=== PATIENT | female | born 1945 | race Caucasian/White ===

== ENCOUNTER 2017-09-09 02:40 | Emergency (ER) | payer MEDICARE, OTHER ==
[~2017-09-09] VITALS: Ht 307.3 cm; Wt 102.1 kg
[~2017-09-09 02:40] MED LIST: ADVAIR; LORTAB 7.5-5001 EACH PO; LOVENOX40 MG/0.4 SC; TENORMIN 25MG T25 MG PO; Z.0.ALTACE10 MG PO; Z.0.CATAPRES0.2 MG PO; Z.0.JANUVIA100 MG PO; Z.0.TRICOR145 MG PO; Z.0.VYTORIN 10-201 E PO
--- OUTSIDE RECORDS SUMMARY | 2017-09-09 02:44 | XMS REPORT | Clinical Summary ---
Author Author [facility] Organization [facility] Address Unknown Phone Unavailable Care Team Providers Care General Neurologist Name Role Phone Alen Huff MD PCP Allergies Not on File Current Medications Prescription Sig. Disp. Refills Start End Date Status Date ezetimibe-simvastatin Take 1 tablet by mouth. Active (VYTORIN) 10-20 mg per tablet nebivolol (BYSTOLIC) 10 Take 10 mg by mouth. Active MG tablet sitaGLIPtin (JANUVIA) 100 Take 100 mg by mouth. Active MG tablet ramipril (ALTACE) 10 MG Take 10 mg by mouth. Active capsule CONTOUR TEST STRIPS strip U TO TEST ONCE D 2 12/12/19 Active test strips 16 cholestyramine (QUESTRAN) MIX THE CONTENTS OF 1 0 12/09/19 Active 4 gram packet PACKET AND DRINK BID UTD 16 bisoprolol (ZEBETA) 5 MG 12/14/19 Active tablet 16 diphenoxylate-atropine TK 1 T PO Q 4 H PRF DH 0 12/17/19 Active (LOMOTIL) 2.5-0.025 mg 16 per tablet ZETIA 10 mg tablet 01/30/20 Active 16 ramipril (ALTACE) 5 MG 11/30/19 Active capsule 16 budesonide EC (ENTOCORT Take 3 capsules (9 mg 90 capsule 3 02/16/20 Active EC) 3 mg 24 hr capsule total) by mouth every 16 morning. Active Problems Problem Noted Date Irritable bowel syndrome Hiatal hernia Hematochezia GERD (gastroesophageal reflux disease) Esophagitis Dyspepsia Diverticulitis of colon Colon polyp Chronic diarrhea Microscopic colitis Family History Relation Name Status Comments Father Mother Social History Tobacco Use Types Packs/Day Years Used Date Never Smoker Alcohol Use Drinks/Week oz/Week Comments Yes Sex Assigned at Date Recorded Not on file Last Filed Vital Signs Not on file Plan of Treatment Health Maintenance Due Date Last Done Comments COLONOSCOPY 10/29/1993 MAMMOGRAM 10/29/1993 ZOSTER VACCINE 2003 PNEUMOCOCCAL 10/29/2008 POLYSACCHARIDE VACCINE AGE 65 AND OVER PNEUMOCOCCAL-13 10/29/2008 INFLUENZA VACCINE 01/01/2018 Results Not on fileafter 09/08/2016 Insurance Payer Benefit Subscriber ID Type Phone Address Plan / Group AETNA AETNA xxxxxxxxxx HMO HMO,POS,EP O, MC/EC MEDICARE MEDICARE xxxxxxxxxx Medicare [place], [place] [address]
[2017-09-09 02:59] VITALS: BP 184/83
[2017-09-09] MEDS ORDERED: TOBRAMYCIN 0.3% OPTH OINT 3.5 GM TUBE OP ONE (03:00)
== END 2017-09-09 03:05 | disposition home or self-care (01) ==
LOC: ER 02:40
DX: H57.12 Ocular pain, left eye (principal); T15.12XA Foreign body in conjunctival sac, left eye, initial encounter; H10.232 Serous conjunctivitis, except viral, left eye
CPT/HCPCS: 99283

== ENCOUNTER 2017-10-06 21:27 | Emergency (ER) | payer MEDICARE, OTHER ==
[~2017-10-06] VITALS: Ht 307.3 cm; Wt 102.1 kg
--- OUTSIDE RECORDS SUMMARY | 2017-10-06 21:30 | XMS REPORT | Continuity of Care Document ---
Author Author [facility] Organization [facility] Address [address] [place] [address] Phone Unavailable Care Team Providers Care Rug Layer Name Role Phone LEFTY ANTHONY MD PCP Insurance Providers Guarantor Delonte Florian Address [address] [place] [address] Payer Medicare A & B Policy Number [id number] Subscriber's Name Pio Florianlie Alka Relationship 18 Self / Same As Patient Group Name RETIRED Effective Date 08 [facility] Number [id number] Subscriber's Name Delonte Florian Alka Relationship 18 Self / Same As Patient Group Number [id number] Group Name [employer] Effective Date 02 Advance Directives Directive Response Recorded Date/Time Does the patient have an advance directive? No 04/21/12 5:21pm If yes, is advance directive on file with [facility]? Yes 04/21/12 5:21pm If not on file with [facility] will patient provide a copy? Yes 04/21/12 5:21pm Problems No problem information available. Medications Current Home Medications Medication Dose Units Route Directions Days Qty Instructions Start Date Atenolol (Tenormin 25MG Tab) 25 Mg Tab 25 Mg Oral Daily Clonidine Hcl (Catapres) 0.2 Mg Tablet 0.2 Mg Oral Daily Enoxaparin Sodium (Lovenox) 40 Mg/0.4 Ml Inj 40 Mg Subcutaneously Daily 14 Days Ezetimibe/Simvastatin (Vytorin 10-20 Mg Tablet) 1 Each Tablet 10 - 20 Mg Oral Daily Fenofibrate Nanocrystallized (Tricor) 145 Mg Tablet 145 Mg Oral Daily Hydrocodone Bit/Acetaminophen (Lortab 7.5-500 Tablet) 1 Each Tablet 1 - 2 Tab Oral Every 4-6 Hours as needed Ramipril (Altace) 10 Mg Capsule 10 Mg Oral Daily Sitagliptin Phosphate (Januvia) 100 Mg Tablet 100 Mg Oral Daily Past Home Medications Medication Directions Ordered Status Advair , As Needed Discontinued Social History Social History Problem Response Recorded Date/Time Onset Date Status Hx Psychiatric Problems No 04/21/2012 5:21pm Not Applicable Not Applicable Smoking Status Start Date Stop Date Never Smoker Hospital Discharge Instructions No hospital discharge instruction information available. Plan of Care Discharge Date 09/09/17 3:05am Disposition HOME, SELF-CARE Condition at Discharge Stable Instructions/Education Provided Infectious Conjunctivitis - Adult Foreign Body - Eye Forms Provided Work/School Excuse Prescriptions See Medication Section Additional Instructions/Education FOLLOW UP WITH PHYSICIAN WITHIN NEXT 2 DAYS Functional Status No functional status information available. Allergies, Adverse Reactions, Alerts Allergen Type Severity Reaction Status Last Updated Lorazepam Adverse Reaction Intermediate SEVERE CONFUSION Active 04/29/12 Immunizations No immunization information available. Vital Signs Acute Vital Signs Vital Response Date/Time Temperature (Fahrenheit) 98.1 degrees F (97.6 - 99.5) 09/09/2017 2:59am Pulse Pulse Rate (adult) 75 bpm (60 - 90) 09/09/2017 2:59am Respiratory Rate 18 bpm (12 - 24) 09/09/2017 2:59am Blood Pressure 184/83 mm Hg 09/09/2017 2:59am Height 10 ft 1 in 09/09/2017 2:43am Weight 225 lb 09/09/2017 2:43am Body Mass Index 10.8 kg/m^2 09/09/2017 2:43am Results No relevant diagnostic test, laboratory data and/or discharge summary information available. Procedures No procedure information available. Encounters Encounter Location Arrival/Admit Date Discharge/Depart Date Attending Provider Departed Emergency Room [facility] 09/09/17 2:40am 3:05am NEWTON BATISTA MD
--- OUTSIDE RECORDS SUMMARY | 2017-10-06 21:30 | XMS REPORT | Clinical Summary ---
Author Author [facility] Organization [facility] Address Unknown Phone Unavailable Care Team Providers Care Maintenance Associate Name Role Phone Alen Huff MD PCP [...] Last Done Comments COLONOSCOPY 10/29/1993 MAMMOGRAM 10/29/1993 SHINGRIX VACCINE (#1) 10/29/1993 ZOSTER VACCINE 2003 PNEUMOCOCCAL 10/29/2008 POLYSACCHARIDE VACCINE AGE 65 AND OVER PNEUMOCOCCAL-13 10/29/2008 INFLUENZA VACCINE 01/01/2018 Results Not on fileafter 10/05/2016 Insurance Payer Benefit Subscriber ID Type Phone Address Plan / Group AETNA AETNA xxxxxxxxxx HMO HMO,POS,EP O, MC/EC MEDICARE MEDICARE xxxxxxxxxx Medicare [place], [place] [address]
--- NOTE | 2017-10-06 22:34 | Diagnostic Imaging Report ---
EXAM: CHEST 2 VIEWS, PA and lateral INDICATION: Dry, nonproductive cough COMPARISON: None FINDINGS: LINES/TUBES: None LUNGS: Mild central bronchial thickening without consolidation. PLEURA: No effusions or pneumothorax. HEART AND MEDIASTINUM: Normal size and contour. BONES AND SOFT TISSUES: No acute findings. Surgical clips upper abdomen seen on lateral view IMPRESSION: Mild central bronchial thickening without consolidation. Findings could represent bronchitis. Signed by: Dr. Concepción Chavez M.D. on 10/06/2017 10:30 PM
[2017-10-06 22:41] VITALS: BP 139/86
== END 2017-10-06 22:54 | disposition home or self-care (01) ==
LOC: ER 21:27
DX: R05 Cough (principal); J20.9 Acute bronchitis, unspecified; I10 Essential (primary) hypertension; E78.5 Hyperlipidemia, unspecified
CPT/HCPCS: 71046; 99283

== ENCOUNTER 2019-03-15 09:04 | Observation (INO) | payer MEDICARE ==
[~2019-03-15] VITALS: Ht 172.7 cm; Wt 83.9 kg
[2019-03-15] VITALS (7 sets, daily range): BP systolic 145–202; BP diastolic 63–98
--- OUTSIDE RECORDS SUMMARY | 2019-03-15 09:09 | XMS REPORT ---
Author Author [facility] Address Unknown Phone Unavailable Care Team Providers Care Home Health Clinician Name Role Phone Garry BATISTA Unavailable Unavailable Problems This patient has no known problems. Allergies, Adverse Reactions, Alerts This patient has no known allergies or adverse reactions. Medications This patient has no known medications. Results Test Description Test Time Test Comments Text Results Atomic Results Result Comments CHEST 2 VIEWS [place] [address] Patient Name: CHRIS FLORIAN MR #: [id number] : 1945 Age/Sex: 71/F Req #: [id number] Adm Physician: Ordered by: NEWTON BATISTA MD Report #: [id number] Location: ER Room/Bed: Procedure: [id number] DX/CHEST 2 VIEWS Exam Date: 10/06/17 Exam Time: 2207 REPORT STATUS: Signed EXAM: CHEST 2 VIEWS, PA and lateral INDICATION: Dry, nonproductive cough COMPARISON: None FINDINGS: LINES/TUBES: None LUNGS: Mild central bronchial thickening without consolidation. PLEURA: No effusions or pneumothorax. HEART AND MEDIASTINUM: Normal size and contour. BONES AND SOFT TISSUES: No acute findings. Surgical clips upper abdomen seen on lateral view IMPRESSION: Mild central bronchial thickening without consolidation. Findings could represent bronchitis. Signed by: Dr. Mgaali Perez M.D. on 10/06/2017 10:30 PM Dictated By: MAGALI PEREZ MD 29 Transcribed By: YVONNE on 10/06/172229 COPY TO: NEWTON BATISTA MD
--- NOTE | 2019-03-15 09:14 | NUR ---
NITRO PASTE TO LEFT CHEST WALL. BP 202/90 HR 78
[2019-03-15] MEDS ORDERED: NITROGLYCERIN 2% OINT 1 GM PKT ONE (09:16)
[2019-03-15 09:24] LABS: BASOPHILS # (AUTO) 0.1 (0.0-0.1); BASOPHILS % 0.4 % (0.0-1.0); EOSINOPHILS # (AUTO) 0.4 (0.0-0.4); EOSINOPHILS % 2.8 % (0.0-6.0); HEMATOCRIT 53.3 % (34.2-44.1); HEMOGLOBIN 17.1 g/dL (12.0-16.0); LYMPHOCYTES # (AUTO) 4.9 (1.0-3.2); LYMPHOCYTES % 35.6 % (18.0-39.1); MEAN CORPUSCULAR HEMOGLOBIN 28.2 pg (28-32); MEAN CORPUSCULAR HGB CONC 32.1 g/dL (31-35); MEAN CORPUSCULAR VOLUME 87.8 fL (81-99); MONOCYTES % 7.3 % (4.4-11.3); NEUTROPHILS # (AUTO) 7.3 (2.1-6.9); PLATELET COUNT 303 x10e3/uL (140-360); RED BLOOD COUNT 6.07 x10e6/uL (3.6-5.1); RED CELL DISTRIBUTION WIDTH 13.1 % (11.7-14.4)
--- NOTE | 2019-03-15 09:42 | NUR ---
family to bring med list for reconciliation
[2019-03-15 09:45] LABS: ALBUMIN 4.3 g/dL (3.5-5.0); ALBUMIN/GLOBULIN RATIO 1.2 (0.8-2.0); ANION GAP 20.8 mmol/L (8-16); CALCIUM 10.5 mg/dL (8.4-10.2); CREATININE, SERUM 0.97 mg/dL (0.57-1.11); POTASSIUM 4.8 mmol/L (3.5-5.1)
[2019-03-15 09:52] LABS: CREATINE KINASE MB 2.6 ng/mL (0-5.0)
[2019-03-15 09:55] LABS: INR 0.9; PARTIAL THROMBOPLASTIN TIME 26.4 seconds (23.8-35.5); PROTHROMBIN TIME 12.6 seconds (11.9-14.5)
[2019-03-15] MEDS ORDERED: NITROGLYCERIN 2% OINT 1 GM PKT TOP ONE (10:00)
--- NOTE | 2019-03-15 10:06 | Diagnostic Imaging Report ---
EXAMINATION: CHEST SINGLE (PORTABLE) INDICATION: Chest pain. COMPARISON: Chest radiograph 10/06/2017. FINDINGS: TUBES and LINES: None. LUNGS: Lungs are moderately inflated. Mild patchy bibasilar opacities, likely atelectasis. There is no evidence of pneumonia or pulmonary edema. PLEURA: No pleural effusion or pneumothorax. HEART AND MEDIASTINUM: The cardiomediastinal silhouette is unremarkable. There are atherosclerotic calcifications within the aorta. BONES AND SOFT TISSUES: No acute osseous abnormality. UPPER ABDOMEN: No free air under the diaphragm. IMPRESSION: No acute radiographic abnormality. Signed by: Dr. Jonh Riley MD on 03/15/2019 10:03 AM
[2019-03-15] MEDS ORDERED: LIVALO1 MG PO (10:21)
[2019-03-15] MEDS ORDERED: COLESTIPOL HCL1 G1 PO (10:21)
[2019-03-15] MEDS ORDERED: VASCEPA PO (10:21)
[2019-03-15] MEDS ORDERED: ZEBETA10 MG PO (10:21)
[2019-03-15] MEDS ORDERED: LOSARTAN POTASS50 MG PO (10:21)
[2019-03-15] MEDS ORDERED: [UNRECOGNIZED DRUG - OTHER] PO (10:21)
[2019-03-15] MEDS: SODIUM CHLORIDE 0.9% 1000ML 1,000 ML IV SCH ×3 (10:38→20:31)
[2019-03-15 19:16] LABS: CREATINE KINASE MB 4.1 ng/mL (0-5.0)
--- NOTE | 2019-03-15 20:05 | NUR ---
CALLED DR. KIRKLAND AND LEFT A VOICEMAIL REGARDING INCREASED TROPONIN LEVEL. AWAITING CALL BACK
--- NOTE | 2019-03-15 20:08 | NUR ---
SPOKE TO DR. KIRKLAND AT THIS TIME REGARDING TROPONIN RESULT, BP READING 173/72, HR 80. NEW ORDERS RECEIVED FOR SCHEDULED METOPROLOL IV AND PRN MORPHINE IV.
[2019-03-15] MEDS ORDERED: MORPHINE SULFATE INJ 4 MG/ML INJ 1ML IV PRN (20:15)
[2019-03-15] MEDS: METOPROLOL TARTRATE INJ 1 MG/ML VIAL IV SCH (20:31)
[2019-03-15] MEDS ORDERED: METOPROLOL TARTRATE INJ 1 MG/ML VIAL ONE (20:34)
[2019-03-16] VITALS (10 sets, daily range): BP systolic 141–174; BP diastolic 63–91
[2019-03-16] MEDS ORDERED: METOPROLOL TARTRATE INJ 1 MG/ML VIAL ONE (02:27)
[2019-03-16] MEDS: METOPROLOL TARTRATE INJ 1 MG/ML VIAL IV SCH ×4 (02:34→20:43)
[2019-03-16 03:40] LABS: CREATINE KINASE MB 3.9 ng/mL (0-5.0)
--- NOTE | 2019-03-16 03:43 | NUR ---
CARDIAC MARKER DRAWN AND BROUGHT TO LAB AT 0242. RESULTS ARE STILL PENDING AT THIS TIME.
[2019-03-16 04:13] LABS: ALANINE AMINOTRANSFERASE 34 IU/L (0-55); ALBUMIN 3.3 g/dL (3.5-5.0); ALBUMIN/GLOBULIN RATIO 1.2 (0.8-2.0); ALKALINE PHOSPHATASE 36 IU/L (40-150); BLOOD UREA NITROGEN 21 mg/dL (7-26); BUN/CREATININE RATIO 27 (6-25); CALCIUM 8.8 mg/dL (8.4-10.2); CARBON DIOXIDE 24 mmol/L (22-29); CHLORIDE 104 mmol/L (98-107); CREATININE, SERUM 0.77 mg/dL (0.57-1.11); EST GLOMERULAR FILTRATION RATE > 60 ML/MIN (60-); GLUCOSE 108 mg/dL (74-118); SODIUM 139 mmol/L (136-145)
[2019-03-16 05:58] LABS: BASOPHILS # (AUTO) 0.1 (0.0-0.1); BASOPHILS % 0.6 % (0.0-1.0); EOSINOPHILS # (AUTO) 0.3 (0.0-0.4); EOSINOPHILS % 3.1 % (0.0-6.0); HEMATOCRIT 46.6 % (34.2-44.1); HEMOGLOBIN 14.9 g/dL (12.0-16.0); LYMPHOCYTES % 38.8 % (18.0-39.1); MEAN CORPUSCULAR HEMOGLOBIN 28.2 pg (28-32); MEAN CORPUSCULAR VOLUME 88.3 fL (81-99); MONOCYTES # (AUTO) 0.7 (0.2-0.8); MONOCYTES % 7.3 % (4.4-11.3); NEUTROPHILS % 49.3 % (38.7-80.0); PLATELET COUNT 230 x10e3/uL (140-360); RED BLOOD COUNT 5.28 x10e6/uL (3.6-5.1); RED CELL DISTRIBUTION WIDTH 13.2 % (11.7-14.4)
--- NOTE | 2019-03-16 06:07 | NUR ---
CBC STILL PENDING AT THIS TIME
[2019-03-16] MEDS ORDERED: VERAPAMIL HCL 2.5 MG/ML 2 ML VIAL ONE (07:12)
[2019-03-16] MEDS ORDERED: HEPARIN SOD (PORCINE) 1000 UNIT/ML 30ML ONE (07:12)
[2019-03-16] MEDS ORDERED: MIDAZOLAM HCL 2 MG/2 ML VIAL ONE (07:12)
[2019-03-16] MEDS ORDERED: FENTANYL CITRATE/PF 100MCG/2 ML INJ ONE (07:13)
[2019-03-16] MEDS ORDERED: LIDOCAINE HCL 2% LOCAL 20 ML VIAL ONE (07:13)
[2019-03-16] MEDS ORDERED: IOPAMIDOL 370 MG/ML 200 ML INFUS..BTL INJ ONE (07:14)
[2019-03-16] MEDS ORDERED: NITROGLYCERIN/D5W 200 MCG/ML 250 ML ONE (07:14)
[2019-03-16] MEDS ORDERED: SODIUM CHLORIDE 0.9% 1000ML 1,000 ML ONE (07:14)
[2019-03-16] MEDS ORDERED: HEPARIN SOD/SOD CHLORIDE 2,000 ML ONE (07:14)
[2019-03-16 12:00] LABS: CREATINE KINASE MB 2.9 ng/mL (0-5.0)
[2019-03-16] MEDS: SODIUM CHLORIDE 0.9% 1000ML 1,000 ML IV SCH (13:56)
--- NOTE | 2019-03-16 15:34 | NUR ---
pt off unit foe cath
--- NOTE | 2019-03-16 16:24 | NUR ---
received report from rodo in r and d lab technician no fix per rn awaiting for pt to arrive back to floor
--- NOTE | 2019-03-16 16:39 | NUR ---
RECEIVED PT FROM PSYCHOLOGICAL ANTHROPOLOGIST [id number]. IS AT BEDSIDE PT IS RESTING COMFORTABLY RIGHT GROIN DRESSING IS DRY AND INTACT PEDAL PULSES PRESENT BILATERALLY PT BACK ON TELEMETRY PT AWARE OF BED REST HOURS UNTIL 6 PM WILL CONTINUE TO MONITOR PT CLOSELY SIDE [id number], BED WHEELS LOCKED, CALL LIGHT IS WITHIN EASY REACH INSTRUCTED TO CALL FOR ASSISTANCE IF NEEDED
--- NOTE | 2019-03-16 19:32 | NUR ---
WALKING ROUNDS COMPLETED. PT IN RESTROOM AT THIS TIME. PT IS PRESENT AT BEDSIDE. WILL CONTINUE TO MONITOR.
[2019-03-17 00:10] VITALS: BP 143/64
--- NOTE | 2019-03-17 00:42 | History and Physical ---
CHIEF COMPLAINT: This is a 73-year-old female, who comes in with chest pain. HISTORY OF PRESENTING ILLNESS: Ms. Delonte Armas, who has been seen in the clinic about 2 weeks prior to admission with shortness of breath and some cough and congestion, was given antibiotics, given steroids and the patient did continue to have chest pain, was sent to Dr. Domingo's office for further evaluation. We did a stress test, stress test was positive. The patient was told to come in and a cardiac cath done today reveals no significant coronary artery disease, no stentable problems. PAST MEDICAL HISTORY: History of hypertension, history of spastic colon, history of hyperlipidemia, and history of chronic diarrhea. MEDICATIONS: She takes at home 10 mg daily, colestipol 1 g twice a day, losartan 50 mg daily, pitavastatin Livalo 1 mg daily, daily. PAST SURGICAL HISTORY: History of left hip surgery in 2004, right knee replacement a couple of weeks ago. The patient also had a carpal tunnel release, tonsillectomy, tubal ligations. ALLERGIES: ALLERGIC TO LORAZEPAM. REVIEW OF SYSTEMS: Positive for chest pain. Positive shortness of breath. No nausea, vomiting, or diarrhea. No constipation. No rectal bleeding. No hematochezia. No hematemesis either. SOCIAL HISTORY: No EtOH. No IV drug abuse. No history of smoking either. FAMILY HISTORY: Positive for heart disease. PHYSICAL EXAMINATION: GENERAL: The patient is alert and oriented x3, status post cardiac cath, sheath in place. Alert and oriented x3. HEENT: Normocephalic, atraumatic. Pupils are reactive to light and accommodation. CVS: S1 and S2 normal. Regular rate and rhythm. ABDOMEN: Soft, nontender, nondistended. EXTREMITIES: No clubbing, no cyanosis, no edema. NEUROLOGIC: Alert and oriented x3 with no focal neurological changes. IMAGING DATA: EKG, no acute changes. No ST elevations. Chest x-ray, normal chest x-ray. LABORATORY TESTS: Shows white count 34190, hemoglobin of 17.1, hematocrit of 53.3. Chemistry shows sodium of 140, potassium of 4.8, BUN of 29, and creatinine 0.97, calcium of 10.5. Initially, the patient's troponins have been trended to be negative. ASSESSMENT: 1. Chest pain, status post coronary angiogram. Negative for significant coronary artery disease. 2. Shortness of breath. We will continue to monitor the patient. We will have CT of the lungs with contrast to rule out any pulmonary etiologies. The patient's chemistry showed a BUN of 29, creatinine of 0.77. We will repeat that tomorrow. If possible, we will do a CT lung to rule out other etiologies of shortness of breath. Further recommendation per clinical course. We will continue on her anti-hyperlipidemic agents and anti-hypertensive agents. MD SHANNA BrewerJ/MODL /[id number]
[2019-03-17] MEDS: METOPROLOL TARTRATE INJ 1 MG/ML VIAL IV SCH ×2 (01:46→08:30)
[2019-03-17] MEDS: SODIUM CHLORIDE 0.9% 1000ML 1,000 ML IV SCH (03:40)
[2019-03-17 04:00] VITALS: BP 145/61
[2019-03-17 05:20] LABS: BASOPHILS % 0.3 % (0.0-1.0); EOSINOPHILS # (AUTO) 0.2 (0.0-0.4); EOSINOPHILS % 2.6 % (0.0-6.0); HEMATOCRIT 43.6 % (34.2-44.1); HEMOGLOBIN 13.7 g/dL (12.0-16.0); LYMPHOCYTES # (AUTO) 2.6 (1.0-3.2); LYMPHOCYTES % 29.1 % (18.0-39.1); MEAN CORPUSCULAR HEMOGLOBIN 28.4 pg (28-32); MEAN CORPUSCULAR HGB CONC 31.4 g/dL (31-35); MEAN CORPUSCULAR VOLUME 90.5 fL (81-99); MONOCYTES # (AUTO) 0.9 (0.2-0.8); MONOCYTES % 10.1 % (4.4-11.3); NEUTROPHILS # (AUTO) 5.2 (2.1-6.9); NEUTROPHILS % 57.3 % (38.7-80.0); PLATELET COUNT 188 x10e3/uL (140-360); RED BLOOD COUNT 4.82 x10e6/uL (3.6-5.1)
[2019-03-17 05:44] LABS: ANION GAP 13.4 mmol/L (8-16); BLOOD UREA NITROGEN 15 mg/dL (7-26); BUN/CREATININE RATIO 19 (6-25); CALCIUM 8.8 mg/dL (8.4-10.2); CARBON DIOXIDE 26 mmol/L (22-29); CHLORIDE 102 mmol/L (98-107); CREATININE, SERUM 0.81 mg/dL (0.57-1.11); EST GLOMERULAR FILTRATION RATE > 60 ML/MIN (60-); GLUCOSE 110 mg/dL (74-118); POTASSIUM 4.4 mmol/L (3.5-5.1); SODIUM 137 mmol/L (136-145)
[2019-03-17 07:56] VITALS: BP 136/68
--- NOTE | 2019-03-17 07:56 | NUR ---
PT OFF UNIT TO RADIOLOGY
--- NOTE | 2019-03-17 08:37 | NUR ---
RECEIVED A CALL FROM RADIOLOGY STATING IV TO RIGHT AC UNABLE TO PUSH CONTRAST , 3 FAILED ATTEMPTS TO START NEW IV ACCESS FROM RADIOLOGY NURSE REPORTED SPOKE TO MD AVALOS REGARDING THIS . STATES AND HAND INJECTION IS OK TO DO . UNDERSTANDS THIS WONT BE UNDER PE PROTOCOL NOTIFIED RADIOLOGY AT THIS TIME WILL COMPLETE SCAN AT THIS TIME
[2019-03-17 08:49] VITALS: BP 136/68
--- NOTE | 2019-03-17 08:49 | Progress Note ---
DATE: 03/17/2019 SUBJECTIVE: A 73-year-old female came in with chest pain. Currently, the patient is chest pain free. She had a cardiac cath yesterday, coronaries looked clean. No complaints, but last night the patient woke up with 1 episode of chest pain and the blood pressure was 180/70s. The patient's is by the bedside. OBJECTIVE: VITAL SIGNS: Temperature is 96.9, blood pressure is 145/61, pulse oximetry of 98%. HEENT: Normocephalic, atraumatic. Pupils are reactive to light and accommodation. CVS: S1 and S2 normal. Regular rate and rhythm. ABDOMEN: Nontender, nondistended. EXTREMITIES: No clubbing, no cyanosis, and/or no edema. LABORATORY VALUES: Today's white count is 9.07, hemoglobin of 13.7, hematocrit of 43.7. Chemistry; sodium 137, potassium 4.4, BUN of 15, creatinine of 0.81. Troponins have been trended to be negative from 0.47 to 0.25. MICROBIOLOGY: None done. ASSESSMENT: 1. A 73-year-old female with a history of chest pain, status post coronary angiogram, minimal coronary artery disease. 2. Shortness of breath. We will do a CT scan today to rule out pulmonary etiologies. 3. Hypertension versus stable angina. The patient can be on Imdur if okay with Cardiology for chest pain relief. Further recommendation per clinical course. We will continue with her antihyperlipidemic agents and also with other antihypertensive agents. MD MONSE Brewer/MARIMARL /[id number]
--- NOTE | 2019-03-17 09:35 | Diagnostic Imaging Report ---
EXAM: CT Chest WITH contrast- Pulmonary Embolism Protocol INDICATION: Shortness of breath, chest pain COMPARISON: Chest radiograph of 03/15/2019 TECHNIQUE: Chest was scanned utilizing a multidetector helical scanner from the lung apex through the level of the diaphragm after administration of IV contrast. Thin section reconstructions were obtained with special concentration on the pulmonary arteries. Coronal and sagittal reformations were obtained. Pulmonary embolism protocol was performed. IV CONTRAST: 100 cc of Isovue 370 RADIATION DOSE: Total DLP: 489.2 mGy*cm Dose modulation, iterative reconstruction, and/or weight based adjustment of the mA/kV was utilized to reduce the radiation dose to as low as reasonably achievable. COMPLICATIONS: None FINDINGS: This study was performed with contrast injection via a hand injection bolus. There is poor opacification of the pulmonary artery and the study is essentially nondiagnostic for PE. LINES/ TUBES: None. PULMONARY ARTERIES: Study is essentially non-diagnostic for PE. There is no definite large filling defect in the minimally opacified main pulmonary artery. The main PA measures 2.1cm. LUNGS AND AIRWAYS: The central airways are patent. No focal consolidation or pulmonary edema. Mild bibasilar dependent subsegmental atelectasis. No suspicious pulmonary nodules. PLEURA: No pleural effusion. No pneumothorax. HEART AND MEDIASTINUM: A 5 mm right thyroid lobe nodule is likely clinically insignificant. No supraclavicular, mediastinal, or hilar lymphadenopathy. The heart is not enlarged. No evidence of right heart strain. No pericardial effusion. Scattered atherosclerotic calcifications involve the coronary arteries, aorta, and great vessels. UPPER ABDOMEN: Limited images of the upper abdomen demonstrate postoperative findings of cholecystectomy and no focal abnormality of the partially visualized liver, spleen, pancreas, or adrenals. The kidneys are not visualized. BONES: No acute osseous injury. No suspicious lytic or blastic lesions. SOFT TISSUES: Unremarkable. IMPRESSION: Poor opacification of the pulmonary artery results in essentially nondiagnostic study for pulmonary embolism. No definite large filling defect in the minimally opacified main pulmonary artery. No main pulmonary artery dilation, right heart strain, or other secondary findings of large pulmonary embolism. Scattered atherosclerotic calcifications including of the coronary arteries. Signed by: Tony Grande MD on 03/17/2019 9:32 AM
[2019-03-17] MEDS ORDERED: LASIX20 MG PO (09:57)
[2019-03-17] MEDS ORDERED: ZETIA10 MG PO (09:58)
[2019-03-17] MEDS ORDERED: OMEGA 3 POLYUNSAT FATTY ACIDS 1000 MG SOFTGEL PO SCH (10:00)
[2019-03-17] MEDS ORDERED: BISOPROLOL FUMARATE 10 MG TAB PO SCH (10:00)
[2019-03-17] MEDS ORDERED: LOSARTAN POTASSIUM 25 MG TAB PO SCH (10:30)
[2019-03-17 11:48] VITALS: BP 130/59
[2019-03-17] MEDS ORDERED: COLESTIPOL HCL 1 G TAB PO SCH (12:00)
--- NOTE | 2019-03-17 13:22 | NUR ---
ASKED MD AVALOS FOR ORDERS ON PT DC , AWAITING FOR CLEARANCE
--- NOTE | 2019-03-17 14:10 | NUR ---
MD KIRKLAND STATES PT IS CLEAR FOR DC UPON CARDIAC STAND POINT
[2019-03-17] MEDS ORDERED: SODIUM CHLORIDE 0.9% 50ML 50 ML ONE (14:30)
[2019-03-17] MEDS ORDERED: IOPAMIDOL 370 MG/ML 200 ML INFUS..BTL INJ ONE (14:30)
[2019-03-17] MEDS ORDERED: ASPIR 8181 MG PO ×2 (15:54→16:00)
[2019-03-17] MEDS ORDERED: CLOPIDOGREL75 MG PO (15:59)
[2019-03-17] MEDS ORDERED: ISOSORBIDE MONO20 MG PO (16:00)
[2019-03-17] MEDS ORDERED: NITROGLYCERIN0.4 MG SL (16:00)
[2019-03-17 16:13] VITALS: BP 143/64
--- NOTE | 2019-03-17 16:20 | NUR ---
DISCHARGE INSTRUCTIONS AND PRESCRIPTIONS GIVEN. PT VERBALIZED UNDERSTANDING IV DC PRESSURE DRESSING APPLIED AND TAPED PT IS READY FOR DC AT THIS TIME
--- NOTE | 2019-03-17 16:28 | NUR ---
PT OFF UNIT TO HOME VIA WHEEL CHAIR AT THIS TIME
[2019-03-17] MEDS ORDERED: ISOSORBIDE MONONITRATE 30 MG TAB CR PO SCH (17:00)
[2019-03-17] MEDS ORDERED: ASPIRIN 81 MG CHEW TAB PO SCH (17:00)
[2019-03-17] MEDS ORDERED: CLOPIDOGREL BISULFATE 75 MG TAB PO SCH (17:00)
[2019-03-17] MEDS ORDERED: EZETIMIBE 10 MG TAB PO SCH (21:00)
--- NOTE | 2019-03-18 04:19 | Progress Note ---
DATE: 03/17/2019 Cardiology Progress Note SUBJECTIVE: No major events overnight. Continues to have some short episodes of pressure in her chest, nonexertional. OBJECTIVE: VITAL SIGNS: Temperature afebrile, pulse 88, respiratory rate 18, blood pressure 130/59, and saturating 95% on room air. GENERAL: Elderly female, in no acute distress. CARDIOVASCULAR: Regular rate and rhythm. No murmurs, rubs, or gallops. LUNGS: Clear to auscultation anteriorly. ABDOMEN: Soft, nontender, and nondistended. Obese. NEUROLOGIC AND PSYCHIATRIC: Alert and oriented to person, place, and time. Normal affect. INPATIENT MEDICATIONS: Reviewed. LABORATORY DATA: Reviewed. TELEMETRY DATA: Reviewed, shows normal sinus rhythm. IMAGING DATA: Reviewed. Coronary angiography yesterday showed no obstructive coronary artery disease. No intervention performed. ASSESSMENT: 1. Non-ST elevation myocardial infarction. 2. Chest pain. 3. Hypertension. 4. Hyperlipidemia. PLAN: Very small elevation in troponin secondary to small plaque rupture versus small vessel disease in the setting of uncontrolled hypertension. We will optimize medical therapy. We will add aspirin, Plavix, and long-acting nitrate for medical regimen. She is okay to follow up in clinic from Cardiology standpoint for further evaluation. Thank you for this consult. We will continue to follow. MD MARIA FERNANDA Lagunas/TESHA /[id number]
--- NOTE | 2019-04-21 05:45 | Operative Report ---
DATE OF PROCEDURE: 03/16/2019 SURGEON: Abhilash Domingo MD CARDIAC TRADE [employer] OFFICIAL PROCEDURE NOTE INDICATION: Coronary artery disease and non-ST segment elevation myocardial infarction. PROCEDURES PERFORMED: 1. Left heart catheterization, selective coronary angiography, left ventriculography. 2. Deployment of right groin Mynx closure device. COMPLICATIONS: None. RECOMMENDATIONS: Medical therapy. DESCRIPTION OF PROCEDURE: Access obtained in the right femoral artery. A 6-Nepali sheath was placed. Coronary angiography demonstrated calcified left anterior descending and right coronary arteries, [id number] diffuse 30% to 50% stenosis in all coronary vessels. No flow-limiting lesions were noted. No critical stenosis or occlusions. LV ejection fraction 60%. LV end-diastolic pressure of 24. No gradient across the aortic valve pullback. Right groin sheath was repaired using Mynx closure device. The patient transferred to the floor in stable condition. Abhilash Domigno MD KSB/MODL /[id number]
== END 2019-03-17 16:27 | disposition home or self-care (01) ==
LOC: ER 09:04 → ERHOLD 10:19 → MED/SURG 12:27
PROVIDERS: ADMIT Family Medicine; ATTEND Family Medicine
DX: I21.4 Non-ST elevation (NSTEMI) myocardial infarction (principal); I10 Essential (primary) hypertension; E78.5 Hyperlipidemia, unspecified; I25.119 Atherosclerotic heart disease of native coronary artery with unspecified angina pectoris
CPT/HCPCS: 36415 ×3; 71045; 71260; 80048; 80053 ×2; 82550 ×2; 82553 ×2; 84484 ×2; 85025 ×3; 85610; 85730; 93005; 93458; 99284; C1760; G0378 ×3; J1644; J2001; J2270; J7030 ×3; Q9967 ×2; J2250; J3010

== ENCOUNTER 2019-08-10 11:50 | Emergency (ER) | payer MEDICARE ==
[~2019-08-10] VITALS: Ht 172.7 cm; Wt 83.9 kg
[~2019-08-10 11:50] MED LIST changes: +ASPIR 8181 MG PO; +CLOPIDOGREL75 MG PO; +COLESTIPOL HCL1 G1 PO; +ISOSORBIDE MONO20 MG PO; +LASIX20 MG PO; +LIVALO1 MG PO; +LOSARTAN POTASS50 MG PO; +NITROGLYCERIN0.4 MG SL; +VASCEPA PO; +ZEBETA10 MG PO; +ZETIA10 MG PO; +[UNRECOGNIZED DRUG - OTHER] PO
--- NOTE | 2019-08-10 13:10 | Diagnostic Imaging Report ---
EXAMINATION: CHEST 2 VIEWS INDICATION: ^cough, family flu, rule out pneumonia ^[id number] ^1220 COMPARISON: None FINDINGS: PA and lateral views TUBES and LINES: None. LUNGS: Lungs are well inflated. Lungs are clear. There is no evidence of pneumonia or pulmonary edema. PLEURA: No pleural effusion or pneumothorax. HEART AND MEDIASTINUM: The cardiomediastinal silhouette is unremarkable. BONES AND SOFT TISSUES: No acute osseous lesion. Sternotomy wires. UPPER ABDOMEN: No free air under the diaphragm. IMPRESSION: No acute thoracic radiographic abnormality. Signed by: Lionel Baker MD on 08/10/2019 1:08 PM
[2019-08-10 13:16] LABS: INFLUENZAE A&B ANTIGEN (RAPID) NEGATIVE (NEGATIVE)
[2019-08-10 13:27] LABS: STREPTOCOCCUS GRP A ANTIGEN NEGATIVE (NEGATIVE)
== END 2019-08-10 14:01 | disposition home or self-care (01) ==
LOC: ER 11:50
DX: R50.9 Fever, unspecified (principal); R05 Cough; M79.10 Myalgia, unspecified site
CPT/HCPCS: 71046; 83518; 87070; 87400; 99283

== ENCOUNTER 2021-05-15 09:23 | Emergency (ER) | payer MEDICARE ==
[~2021-05-15] VITALS: Ht 172.7 cm; Wt 83.9 kg
[2021-05-15] MEDS ORDERED: ASPIRIN 81 MG CHEW TAB PO ONE (09:30)
[2021-05-15] MEDS ORDERED: Morphine 4mg Syringe 4 MG/ML INJ IV ONE (09:30)
[2021-05-15] MEDS ORDERED: NITROGLYCERIN 0.4 MG SUBL SL PRN (09:30)
[2021-05-15 10:07] LABS: ANION GAP 17.6 mmol/L (8-16); CALCIUM 9.4 mg/dL (8.4-10.2); CREATININE, SERUM 0.83 mg/dL (0.57-1.11); INR 0.89; POTASSIUM 4.6 mmol/L (3.5-5.1); PROTHROMBIN TIME 12.8 seconds (11.9-14.5)
[2021-05-15 10:38] LABS: BASOPHILS % 0.5 % (0.0-1.0); EOSINOPHILS # (AUTO) 0.2 (0.0-0.4); EOSINOPHILS % 2.6 % (0.0-6.0); HEMATOCRIT 50.1 % (34.2-44.1); HEMOGLOBIN 15.7 g/dL (12.0-16.0); LYMPHOCYTES # (AUTO) 2.3 (1.0-3.2); LYMPHOCYTES % 28.8 % (18.0-39.1); MEAN CORPUSCULAR HEMOGLOBIN 26.8 pg (28-32); MEAN CORPUSCULAR HGB CONC 31.3 g/dL (31-35); MEAN CORPUSCULAR VOLUME 85.5 fL (81-99); MONOCYTES # (AUTO) 0.7 (0.2-0.8); MONOCYTES % 8.8 % (4.4-11.3); NEUTROPHILS # (AUTO) 4.7 (2.1-6.9); PLATELET COUNT 245 x10e3/uL (140-360); RED BLOOD COUNT 5.86 x10e6/uL (3.6-5.1); RED CELL DISTRIBUTION WIDTH 14.3 % (11.7-14.4)
== END 2021-05-15 14:25 | disposition other institution (70) ==
LOC: ER 09:33
DX: R07.9 Chest pain, unspecified (principal); I10 Essential (primary) hypertension; E78.5 Hyperlipidemia, unspecified; Z95.1 Presence of aortocoronary bypass graft; Z85.3 Personal history of malignant neoplasm of breast; Z96.642 Presence of left artificial hip joint; Z96.651 Presence of right artificial knee joint; Z20.822 Contact with and (suspected) exposure to COVID-19
CPT/HCPCS: 36415; 71046; 80048; 84484; 85025; 85379; 85610; 85730; 93005; 99284; J2270; U0002

== ENCOUNTER 2024-11-29 07:06 | Emergency (ER) | payer MEDICARE ==
[~2024-11-29] VITALS: Ht 172.7 cm; Wt 83.9 kg
[2024-11-29 07:16] VITALS: PULSE 86; RESP 18; TEMP 97.9; O2SAT 98
[2024-11-29 08:15] LABS: CORONAVIRUS COVID-19 AG NEGATIVE (NEGATIVE)
== END 2024-11-29 09:05 | disposition home or self-care (01) ==
LOC: ER 07:16
DX: R05.9 Cough, unspecified (principal); J06.9 Acute upper respiratory infection, unspecified; R53.81 Other malaise; I10 Essential (primary) hypertension; E78.5 Hyperlipidemia, unspecified; Z11.52 Encounter for screening for COVID-19
CPT/HCPCS: 71046; 83518; 87070; 99283